=== PATIENT | female | born 1995 | race Caucasian/White ===

== ENCOUNTER 2024-04-13 07:57 | Emergency (ER) | payer OTHER, MEDICAID ==
[~2024-04-13] VITALS: Ht 162.6 cm; Wt 61.2 kg
[2024-04-13 08:00] VITALS: BP 106/66; PULSE 76; RESP 16; TEMP 98.4; O2SAT 100
[2024-04-13] MEDS ORDERED: ACET-8905 PO (08:47)
[2024-04-13] MEDS ORDERED: IBUP-2213 PO (08:47)
[2024-04-13] MEDS: KETOROLAC 60 MG/2 ML VIAL IM ONE (08:51)
[2024-04-13 09:39] VITALS: BP 109/69; PULSE 76; RESP 22; TEMP 98.4; O2SAT 100
== END 2024-04-13 09:38 | disposition home or self-care (01) ==
LOC: MED 07:57
DX: R07.89 Other chest pain (principal); R05.9 Cough, unspecified; J45.909 Unspecified asthma, uncomplicated
CPT/HCPCS: 93005; 96372; 99283; J1885